=== PATIENT | female | born 1985 | race African-American/Black ===

== ENCOUNTER 2016-04-23 11:43 | Emergency (ER) | payer OTHER ==
[2016-04-23 11:50] VITALS: BP 145/93; TEMP 98.2; BMI 19.2
[2016-04-23 12:58] LABS: BASOPHIL 0.4 % (0-2.0); EOSINOPHIL 1.5 % (0-4.5); MCH 33.3 pg (25.7-33.7); MCHC 33.5 g/dl (32.0-36.0); MEAN CELL VOLUME 99.3 fl (80-96); MEAN PLT VOLUME 9.5 fl (7.5-11.1); NEUTROPHILS 53.5 % (42.8-82.8); PLATELET COUNT 117 K/MM3 (134-434); RDW 13.3 % (11.6-15.6); WHITE BLOOD COUNT 2.7 K/mm3 (4.0-10.0)
[2016-04-23 13:01] LABS: URINE APPEARANCE CLEAR; URINE BILIRUBIN NEGATIVE (NEGATIVE); URINE COLOR STRAW; URINE GLUCOSE (UA) NEGATIVE (NEGATIVE); URINE KETONE NEGATIVE (NEGATIVE); URINE LEUK ESTERASE NEGATIVE (NEGATIVE); URINE NITRITE NEGATIVE (NEGATIVE); URINE PROTEIN NEGATIVE (NEGATIVE); URINE UROBILINOGEN NEGATIVE E.U./dl (0.2-1.0)
[2016-04-23 13:02] LABS: URINE BLOOD 1+ (NEGATIVE)
[2016-04-23 13:04] LABS: URINE MUCUS RARE; URINE RBC <1 /hpf (0-3); URINE WBC 1 /hpf (3-5)
--- NOTE | 2016-04-23 13:28 | PDOC ---
History of Present Illness - General Chief Complaint: Vaginal Bleeding Stated Complaint: POSSIBLE MISCARRIAGE Time Seen by Provider: 04/23/16 12:04 History Source: Patient Exam Limitations: No Limitations - History of Present Illness Initial Comments: 04/23/16 13:28 CHIEF COMPLAINT: Vaginal bleeding HISTORY OF PRESENT ILLNESS: This is an otherwise healthy A1 with LMP 04/03 presents for evaluation of 3 days of low back pain, abdominal cramping, and vaginal bleeding. Patient had a positive home test but has not yet had a [employer] evaluation or ultrasound for this . Vital signs on arrival are notable for pulse of 102. REVIEW OF SYSTEMS: GENERAL/CONSTITUTIONAL: No fever or chills. No weakness. No weight change. CARDIOVASCULAR: No chest pain or palpitations. RESPIRATORY: No cough, wheezing, or shortness of breath. GASTROINTESTINAL: No nausea, vomiting, diarrhea or constipation. GENITOURINARY: See HPI. MUSCULOSKELETAL: No joint or muscle swelling or pain. No neck or back pain. SKIN: No rash or easy bruising. NEUROLOGIC: No headache, vertigo, loss of consciousness, or loss of sensation. HEMATOLOGIC/LYMPHATIC: History of anemia, no transfusions. ALLERGIC/IMMUNOLOGIC: No hives or skin allergy. No latex allergy. PHYSICAL EXAM: GENERAL: The patient is awake, alert, and fully oriented, in no acute distress. ENT: Pupils equal, round and reactive to light, extraocular movements intact, sclera anicteric, conjunctiva clear. Neck supple. LUNGS: Clear to auscultation bilaterally. Normal excursion. No respiratory distress or use of accessory muscles. CV: RRR, S1/S2, no MRG. Cap refill < 2 sec. ABDOMEN: Soft, non-distended, non-tender. EXTREMITIES: Normal range of motion, no edema. NEUROLOGICAL: Normal speech, normal gait. CN II-XII grossly intact. PSYCH: Normal mood, normal affect. SKIN: Warm, dry, normal turgor, no rashes or lesions noted. [employer]: Normal external exam. Scant dark blood in vaginal vault. Mild bilateral adnexal tenderness. Past History - Past Medical History Allergies/Adverse Reactions: Allergies Allergy/AdvReac Type Severity Reaction Status Date / Time shellfish derived Allergy Verified 04/23/16 11:47 Home Medications: Ambulatory Orders No Home Medications 0 dose .ROUTE UTDICT 06/12/13 Ibuprofen [Motrin -] 600 mg PO QID PRN #30 tablet 04/23/16 Other medical history: none - Reproductive History Is Patient Now?: Yes (#): 4 Para: 2 Therapeutic (s) & number: Yes (0) Spontaneous : 0 - Psycho/Social/Smoking Cessation Hx Anxiety: No Suicidal Ideation: No Smoking History: Current every day smoker Have you smoked in the past 12 months: Yes Number of Cigarettes Smoked Daily: 4 Information on smoking cessation initiated: Yes 'Breaking Loose' booklet given: 04/23/16 Hx Alcohol Use: No Drug/Substance Use Hx: No Substance Use Type: Alcohol *Physical Exam - Vital Signs Last Vital Signs Temp Pulse Resp BP Pulse Ox 98.2 F 102 H 18 145/93 100 04/23/16 11:48 04/23/16 11:48 04/23/16 11:48 04/23/16 11:48 04/23/16 11:48 ED Treatment Course - LABORATORY CBC & Chemistry Diagram: 04/23/16 12:27 - ADDITIONAL ORDERS Additional order review: Laboratory Results 04/23/16 12:27 Urine Color Straw Urine Appearance Clear Urine pH 6.0 Ur Specific Terry 1.011 Urine Protein Negative Urine Glucose (UA) Negative Urine Ketones Negative Urine Blood 1+ H Urine Nitrite Negative Urine Bilirubin Negative Urine Urobilinogen Negative Ur Leukocyte Esterase Negative Urine RBC <1 Urine WBC 1 Ur Epithelial Cells Rare Urine Mucus Rare 04/23/16 12:27 RBC 4.29 MCV 99.3 H MCHC 33.5 RDW 13.3 MPV 9.5 Neutrophils % 53.5 D Lymphocytes % 37.8 D Monocytes % 6.8 Eosinophils % 1.5 D Basophils % 0.4 - RADIOLOGY Radiology Studies Ordered: Category Date Time Status <14WKS US [US] Stat Ultrasound 04/23/16 12:55 Ordered Medical Decision Making - Medical Decision Making 04/23/16 14:16 A/P: 30 year old female with first trimester vaginal bleeding. 1. Labs including CBC, bhcg 2. Transvaginal u/s 3. Re-assess Bhcg <1, u/s canceled. Discussed results with patient. Followup instructions and return precautions reviewed. *DC/Admit/Observation/Transfer Diagnosis at time of Disposition: Spontaneous - Discharge Dispostion Disposition: HOME Admit: No - Prescriptions Prescriptions: Ibuprofen [Motrin -] 600 mg PO QID PRN #30 tablet PRN Reason: Pain - Referrals Referrals: Kika Montero MD [Primary Care Provider] - 1 week - Patient Instructions Printed Discharge Instructions: DI for Miscarriage Additional Instructions: -Your blood work today is consistent with complete miscarriage -Take ibuprofen 600mg as prescribed if needed for pain/cramping -Return here for heavy bleeding (more than one pad per hour) or any other concerning symptoms.
[2016-04-23] MEDS ORDERED: IBUPROFEN 600 MG TABLET (FP) PO ONE ×2 (13:49→13:53)
[2016-04-23 14:19] VITALS: PULSE 87
== END 2016-04-23 14:19 | disposition home or self-care (01) ==
LOC: JER 11:43
DX: O02.1 Missed abortion (principal); Z3A.01 Less than 8 weeks gestation of pregnancy
CPT/HCPCS: 36415; 81003; 81015; 84702; 85025; 86850; 86900; 86901; 87086; 99283-25

== ENCOUNTER 2016-12-04 10:49 | Emergency (ER) | payer OTHER ==
[2016-12-04 10:58] VITALS: BP 112/72; PULSE 76; TEMP 98.7; BMI 20.5
--- NOTE | 2016-12-04 11:51 | PDOC ---
History of Present Illness - General History Source: Patient Exam Limitations: No Limitations - History of Present Illness Initial Comments: 12/04/16 12:53 31 y/o F (A2) with no PMHx presents to the ED with vaginal bleeding and crampy lower abdominal pain. Patient reports she went to the ED complaining of cramps and bleeding while visiting [place], and subsequently found out she was . [facility] had an [facility]. She woke up from anesthesia and was not bleeding and there was no blood on her pad. She believes that the clinic did not do the and she presents today demanding to know what they did at the clinic. Denies headache, dizziness, chest pain, SOB. Denies nausea, vomiting. <Marcelle Nava - Last Filed: 12/04/16 12:53> <Mansoor Guardado - Last Filed: 12/04/16 15:23> - General Chief Complaint: Vaginal Bleeding Stated Complaint: VAGINAL BLEEDING Time Seen by Provider: 12/04/16 11:48 Past History <Marcelle Nava - Last Filed: 12/04/16 12:53> - Past Medical History Other medical history: Pt denies - Reproductive History (#): 4 Para: 2 Therapeutic (s) & number: Yes (0) Spontaneous : 0 - Immunization History Immunization Up to Date: Yes - Suicide/Smoking/Psychosocial Hx Smoking History: Current every day smoker Have you smoked in the past 12 months: Yes Number of Cigarettes Smoked Daily: 5 Information on smoking cessation initiated: No 'Breaking Loose' booklet given: 04/23/16 Hx Alcohol Use: No Drug/Substance Use Hx: No Substance Use Type: Alcohol <Mansoor Guardado - Last Filed: 12/04/16 15:23> - Past Medical History Allergies/Adverse Reactions: Allergies Allergy/AdvReac Type Severity Reaction Status Date / Time shellfish derived Allergy Verified 12/04/16 10:52 Home Medications: Ambulatory Orders No Home Medications 0 dose .ROUTE UTDICT 06/12/13 Review of Systems - Review of Systems Able to Perform ROS?: Yes Comments:: 12/04/16 12:53 GENERAL/CONSTITUTIONAL: No fever or chills. No weakness. HEAD, EYES, EARS, NOSE AND THROAT: No change in vision. No ear pain or discharge. No sore throat. CARDIOVASCULAR: No chest pain or shortness of breath. RESPIRATORY: No cough, wheezing, or hemoptysis. GASTROINTESTINAL: No nausea, vomiting, diarrhea or constipation. GENITOURINARY: (+) vaginal bleeding, lower abdominal cramping. No dysuria, frequency, or change in urination. MUSCULOSKELETAL: No joint or muscle swelling or pain. No neck or back pain. SKIN: No rash NEUROLOGIC: No headache, vertigo, loss of consciousness, or change in strength/ sensation. ENDOCRINE: No increased thirst. No abnormal weight change. HEMATOLOGIC/LYMPHATIC: No anemia, easy bleeding, or history of blood clots. ALLERGIC/IMMUNOLOGIC: No hives or skin allergy. <Marcelle Nava - Last Filed: 12/04/16 12:53> *Physical Exam - Vital Signs Last Vital Signs Temp Pulse Resp BP Pulse Ox 98.7 F 76 16 112/72 100 12/04/16 10:52 12/04/16 10:52 12/04/16 10:52 12/04/16 10:52 12/04/16 10:52 - Physical Exam Comments: 12/04/16 12:53 GENERAL: Awake, alert, and fully oriented, in no acute distress HEAD: No signs of trauma EYES: PERRLA, EOMI, sclera anicteric, conjunctiva clear ENT: Auricles normal inspection, hearing grossly normal, nares patent, oropharynx clear without exudates. Moist mucosa NECK: Normal ROM, supple, no lymphadenopathy, JVD, or masses LUNGS: Breath sounds equal, clear to auscultation bilaterally. No wheezes, and no crackles HEART: Regular rate and rhythm, normal S1 and S2, no murmurs, rubs or gallops ABDOMEN: Soft, nontender, normoactive bowel sounds. No guarding, no rebound. No masses EXTREMITIES: Normal range of motion, no edema. No clubbing or cyanosis. No cords, erythema, or tenderness NEUROLOGICAL: Cranial nerves II through XII grossly intact. Normal speech, normal gait SKIN: Warm, Dry, normal turgor, no rashes or lesions noted. <Marcelle Nava - Last Filed: 12/04/16 12:53> - Vital Signs Last Vital Signs Temp Pulse Resp BP Pulse Ox 98.7 F 76 16 112/72 100 12/04/16 10:52 12/04/16 10:52 12/04/16 10:52 12/04/16 10:52 12/04/16 10:52 <Mansoor Guardado - Last Filed: 12/04/16 15:23> ED Treatment Course - LABORATORY CBC & Chemistry Diagram: 12/04/16 12:12 12/04/16 12:12 - ADDITIONAL ORDERS Additional order review: 12/04/16 12:12 RBC 4.15 MCV 94.0 MCHC 33.2 RDW 15.5 D MPV 9.5 Neutrophils % 61.8 Lymphocytes % 29.2 D Monocytes % 7.1 Eosinophils % 1.4 Basophils % 0.5 <Marcelle Nava - Last Filed: 12/04/16 12:53> - LABORATORY CBC & Chemistry Diagram: 12/04/16 12:12 12/04/16 12:12 <Mansoor Guardado - Last Filed: 12/04/16 15:23> Medical Decision Making - Medical Decision Making 12/04/16 12:08 30 yo female (3 yo and 9yo) went to ED in [place] and found out she was . [facility] then [facility] [place] [facility] , and eventhough she had anesthesa, she does not believe that she had a procedure done, and that she is still with twins. October 19 was her last period. She started bleeding this morning and she wants me to tell her what happened on Saturday. <Mansoor Guardado - Last Filed: 12/04/16 15:23> *DC/Admit/Observation/Transfer - Attestations Scribe Attestion: 12/04/16 12:53 Documentation prepared by Marcelle Nava, acting as medical laboratory specialist for Mansoor Guardado DO. <Marcelle Nava - Last Filed: 12/04/16 12:53> - Discharge Dispostion Admit: No - Attestations Physician Attestion: 12/04/16 11:49 I, Dr. Mansoor Guardado, attest that this document has been prepared under my direction and personally reviewed by me in its entirety. I further attest, that it accurately reflects all work, treatment, procedures and medical decision -making performed by me. <Mansoor Guardado - Last Filed: 12/04/16 15:23> Diagnosis at time of Disposition: Complete spontaneous - Discharge Dispostion Disposition: HOME Condition at time of disposition: Unchanged/Unknown - Patient Instructions Printed Discharge Instructions: DI for Therapeutic : Surgical, Therapeutic : Surgical Additional Instructions: Vicky - You need to have another quantative test done in 48 hours. Follow up with your OB or come back to the ED. The result today was 3013. Return to us if any problems. Best- Dr. Mansoor Zhang
[2016-12-04 12:26] LABS: BASOPHIL 0.5 % (0-2.0); EOSINOPHIL 1.4 % (0-4.5); MCH 31.2 pg (25.7-33.7); MCHC 33.2 g/dl (32.0-36.0); MEAN PLT VOLUME 9.5 fl (7.5-11.1); NEUTROPHILS 61.8 % (42.8-82.8); PLATELET COUNT 150 K/MM3 (134-434); RDW 15.5 % (11.6-15.6); WHITE BLOOD COUNT 5.9 K/mm3 (4.0-10.0)
[2016-12-04 13:00] LABS: INR 0.97 (0.82-1.09); PROTHROMBIN TIME (PATIENT) 10.7 SEC (9.98-11.88)
[2016-12-04 13:19] LABS: ALBUMIN 3.7 g/dl (3.4-5.0); ANION GAP 5 (8-16); BILIRUBIN,TOTAL 0.7 mg/dL (0.2-1.0); CO2 27 mmol/L (21-32); CREATININE 0.7 mg/dL (0.55-1.02); GLUCOSE,RANDOM 87 mg/dL (74-106); SGPT/ALT 28 U/L (12-78); TOT PROT 7.1 g/dl (6.4-8.2)
[2016-12-04 13:35] LABS: ALK PHOS 60 U/L (45-117)
[2016-12-04 13:51] LABS: SGOT/AST 28 U/L (15-37)
[2016-12-04] MEDS ORDERED: ACETAMINOPHEN 500 MG TABLET (FP) PO ONE (14:19)
[2016-12-04] MEDS ORDERED: ACETAMINOPHEN 325 MG TABLET (FP) ONE (14:23)
== END 2016-12-04 17:10 | disposition home or self-care (01) ==
LOC: JER 10:49
DX: O03.9 Complete or unspecified spontaneous abortion without complication (principal)
CPT/HCPCS: 36415; 76817-TC; 80053; 84702; 85025; 85610; 86850; 86900; 86901; 99283-25